=== PATIENT | female | born 1960 | race Caucasian/White ===

== ENCOUNTER 2020-12-09 11:20 | Outpatient (CLI) | payer OTHER ==
[2020-12-09 13:18] LABS: Hemoglobin 12.8 g/dL (12.0-15.5); Mean Corpuscular Hemoglobin 32.8 pg (27.0-33.0); Mean Corpuscular Volume 99.5 fl (81.6-98.3); Mean Platelet Volume 10.1 fl (7.4-10.4); Platelet Count 293 10x3/uL (150-450); RBC Distribution Width 13.6 % (11.5-14.5); White Blood Cell (WBC) Count 6.7 10x3/uL (3.5-10.5)
[2020-12-09 13:20] LABS: Anion Gap 15 mmol/L (10-20); BUN (Urea Nitrogen) 14 mg/dL (9.8-20.1); Calc. Creatinine Clearance 0 mL/min (70-130); Calcium 9.2 mg/dL (7.8-10.44); Carbon Dioxide 27 mmol/L (22-29); Chloride 107 mmol/L (98-107); Glucose 70 mg/dL (70-105); Potassium 5.7 mmol/L (3.5-5.1); Sodium 143 mmol/L (136-145)
[2020-12-10 00:39] LABS: SARS-CoV-2 PCR by NAA Not Detected (NotDetected)
== END 2020-12-09 11:21 | disposition home or self-care (01) ==
LOC: LABBT 11:20
PROVIDERS: ATTEND Internal Medicine Cardiovascular Disease
DX: Z01.812 Encounter for preprocedural laboratory examination (principal); T82.111A Breakdown (mechanical) of cardiac pulse generator (battery), initial encounter; I49.5 Sick sinus syndrome; Z20.822 Contact with and (suspected) exposure to COVID-19
CPT/HCPCS: 80048; 85027; 85610; U0003; U0005

== ENCOUNTER 2020-12-12 05:59 | Day surgery (SDC) | payer OTHER ==
[2020-12-11 13:31] VITALS: BMI 29.7
[2020-12-12] MEDS ORDERED: Lidocaine 1% (PF) 30 ML VIAL ONE (06:35)
[2020-12-12] MEDS ORDERED: CEFAZOLIN 1 GM VIAL ONE (06:35)
[2020-12-12] MEDS ORDERED: Gentamicin 80 MG/2 ML VIAL ONE (06:35)
[2020-12-12] MEDS ORDERED: ceFAZolin 2 GM/DEX 5% 100 ML BAG ONE (06:56)
[2020-12-12] MEDS ORDERED: Fentanyl 100 MCG/2 ML VIAL ONE (07:20)
[2020-12-12] MEDS ORDERED: Midazolam HCl 2 mg/2 ml Vial ONE (07:20)
== END 2020-12-12 14:21 | disposition home or self-care (01) ==
LOC: SDC 05:59
PROVIDERS: ATTEND Internal Medicine Cardiovascular Disease
PROC: 0JPT0PZ Removal of Cardiac Rhythm Related Device from Trunk Subcutaneous Tissue and Fascia, Open Approach (ICD-10-PCS; principal; 2020-12-12)
PROC: 3E0102A Introduction of Anti-Infective Envelope into Subcutaneous Tissue, Open Approach (ICD-10-PCS; principal; 2020-12-12)
PROC: 0JH606Z Insertion of Pacemaker, Dual Chamber into Chest Subcutaneous Tissue and Fascia, Open Approach (ICD-10-PCS; principal; 2020-12-12)
DX: I49.5 Sick sinus syndrome (principal); T82.111A Breakdown (mechanical) of cardiac pulse generator (battery), initial encounter; I48.0 Paroxysmal atrial fibrillation; J45.909 Unspecified asthma, uncomplicated; F17.200 Nicotine dependence, unspecified, uncomplicated; Z86.73 Personal history of transient ischemic attack (TIA), and cerebral infarction without residual deficits; Z79.899 Other long term (current) drug therapy; Y71.1 Therapeutic (nonsurgical) and rehabilitative cardiovascular devices associated with adverse incidents
CPT/HCPCS: 33228; 93005; 99152; 99153; C1785; J0690; J1580; J2001; J2250; J3010

== ENCOUNTER 2021-01-27 12:42 | Outpatient (CLI) | payer OTHER | END 2021-01-27 12:43 | disposition home or self-care (01) | LOC: MRI 12:42 | PROVIDERS: ATTEND Neurological Surgery | DX: M54.50 Low back pain, unspecified (principal); M79.606 Pain in leg, unspecified; M47.816 Spondylosis without myelopathy or radiculopathy, lumbar region; J98.4 Other disorders of lung; M51.24 Other intervertebral disc displacement, thoracic region; M48.061 Spinal stenosis, lumbar region without neurogenic claudication; M48.07 Spinal stenosis, lumbosacral region; M51.36 Other intervertebral disc degeneration, lumbar region; Z95.0 Presence of cardiac pacemaker; M47.817 Spondylosis without myelopathy or radiculopathy, lumbosacral region | CPT/HCPCS: 71045; 72148 ==

== ENCOUNTER 2022-06-21 10:28 | Emergency (ER) | payer OTHER ==
[2022-06-21] MEDS ORDERED: Ketorolac Tromethamine 30 MG/ML VIAL ONE (12:07)
== END 2022-06-21 13:00 | disposition home or self-care (01) ==
LOC: ERS 10:28
DX: M25.551 Pain in right hip (principal); F17.290 Nicotine dependence, other tobacco product, uncomplicated
CPT/HCPCS: 96372; J1885